=== PATIENT | male | born 1995 | race Caucasian/White ===

== ENCOUNTER 2017-04-20 00:58 | Emergency (ER) | payer MEDICAID ==
[~2017-04-20] VITALS: Ht 177.8 cm; Wt 66.0 kg
[2017-04-20] MEDS ORDERED: ACETAMINOPHEN 500 MG TABLET ONE (01:26)
[2017-04-20] MEDS ORDERED: ACETAMINOPHEN 500 MG TABLET PO ONE (01:30)
[2017-04-20 03:17] VITALS: BP 118/55
== END 2017-04-20 03:18 | disposition home or self-care (01) ==
LOC: ED 03:12
DX: S60.511A Abrasion of right hand, initial encounter (principal); S09.90XA Unspecified injury of head, initial encounter; M54.2 Cervicalgia; Y04.0XXA Assault by unarmed brawl or fight, initial encounter; Y93.89 Activity, other specified; Y92.488 Other paved roadways as the place of occurrence of the external cause; Y99.8 Other external cause status
CPT/HCPCS: 70450; 72125; 99284

== ENCOUNTER 2017-06-14 01:57 | Emergency (ER) | payer MEDICAID | END 2017-06-14 02:19 | disposition left against medical advice (07) | LOC: ED 02:12 | DX: F10.129 Alcohol abuse with intoxication, unspecified (principal); R45.851 Suicidal ideations; Z53.21 Procedure and treatment not carried out due to patient leaving prior to being seen by health care provider ==

== ENCOUNTER 2018-08-11 16:08 | Emergency (ER) | payer BC, MEDICAID ==
[~2018-08-11] VITALS: Ht 175.3 cm; Wt 64.6 kg
[2018-08-11 16:10] VITALS: BP 162/100
[2018-08-11 16:29] LABS: BASOPHILS # (AUTO) 0.03 x10^3/uL (0-0.1); BASOPHILS % (AUTO) 1 % (0-1); EOSINOPHILS # (AUTO) 0.16 x10^3/uL (0-0.4); EOSINOPHILS % (AUTO) 2 % (1-7); LYMPHOCYTES # (AUTO) 3.17 x10^3/uL (1-3.4); LYMPHOCYTES % (AUTO) 49 % (22-44); MD NO; MEAN CORPUSCULAR HEMOGLOBIN 31.1 pg (27.5-34.5); MEAN CORPUSCULAR HGB CONC 33.1 g/dL (33.2-36.2); MEAN CORPUSCULAR VOLUME 94.1 fL (81-97); MEAN PLATELET VOLUME 7.8 fL (7.4-10.4); MONOCYTES # (AUTO) 0.47 x10^3/uL (0.2-0.8); MONOCYTES % (AUTO) 7 % (2-9); NEUTROPHILS # (AUTO) 2.68 x10^3/uL (1.8-6.8); NEUTROPHILS % (AUTO) 41 % (42-75); PLATELET COUNT 376 x10^3/uL (130-400); RED BLOOD COUNT 5.64 x10^6/uL (4.38-5.82); RED CELL DISTRIBUTION WIDTH 13.8 % (9.4-14.8)
[2018-08-11 16:40] LABS: ALANINE AMINOTRANSFERASE 47 U/L (12-78); ALBUMIN 4.3 g/dL (3.4-5.0); ANION GAP 12 mmol/L (5-15); CALCIUM 8.9 mg/dL (8.5-10.1); CHLORIDE 106 mmol/L (98-107)
[2018-08-11 16:42] LABS: ALKALINE PHOSPHATASE 86 U/L (45-117); BILIRUBIN,TOTAL 0.4 mg/dL (0.2-1.0); TOTAL PROTEIN 8.2 g/dL (6.4-8.2)
== END 2018-08-11 17:51 | disposition home or self-care (01) ==
LOC: ED 17:40
DX: F10.120 Alcohol abuse with intoxication, uncomplicated (principal)
CPT/HCPCS: 36415; 80053; 83690; 85025; 99283

== ENCOUNTER 2018-10-18 04:51 | Emergency (ER) | payer BC ==
[~2018-10-18] VITALS: Ht 175.3 cm; Wt 64.4 kg
--- NOTE | 2018-10-18 05:17 | NUR ---
PT PRESENTED WITH C/O VOMITING NONSTOP FOR 3 DAYS,ALSO GEENERALIZE BODY ACHES, DENIES DIARRHEA. MONITORS APPLIED, SIDERAILS UP X2, CALL LIGHT WITHIN REACH. PA AT BEDSIDE FOR EVAL
[2018-10-18] MEDS ORDERED: FAMOTIDINE 20 MG/2 ML ONE (05:30)
[2018-10-18] MEDS ORDERED: LORazepam 2 MG/ML, 1ML IVPush ONE ×2 (05:30→07:00)
[2018-10-18] MEDS ORDERED: FAMOTIDINE 20 MG/2 ML IVP ONE (05:30)
[2018-10-18] MEDS ORDERED: ONDANSETRON 2MG/ML, 2ML IVPush ONE (05:30)
[2018-10-18] MEDS ORDERED: SODIUM CHLORIDE 0.9% 1,000ML IVBOLUS ONE (05:30)
[2018-10-18] MEDS ORDERED: SODIUM CHLORIDE FLUSH 10ML SYR IVF ONE (05:30)
[2018-10-18] MEDS ORDERED: LORazepam 2 MG/ML, 1ML ONE ×2 (05:30→06:27)
[2018-10-18] MEDS ORDERED: ONDANSETRON 2MG/ML, 2ML ONE (05:31)
--- NOTE | 2018-10-18 05:36 | NUR ---
PT MEDICATED PER MAR. PT TO ULTRASOUND.
[2018-10-18 05:53] LABS: BASOPHILS # (AUTO) 0.06 x10^3/uL (0-0.1); BASOPHILS % (AUTO) 1 % (0-1); EOSINOPHILS % (AUTO) 0 % (1-7); LYMPHOCYTES # (AUTO) 0.88 x10^3/uL (1-3.4); LYMPHOCYTES % (AUTO) 7 % (22-44); MD NO; MEAN CORPUSCULAR HEMOGLOBIN 33.1 pg (27.5-34.5); MEAN CORPUSCULAR HGB CONC 35.3 g/dL (33.2-36.2); MEAN CORPUSCULAR VOLUME 93.8 fL (81-97); MEAN PLATELET VOLUME 7.9 fL (7.4-10.4); MONOCYTES # (AUTO) 0.52 x10^3/uL (0.2-0.8); MONOCYTES % (AUTO) 4 % (2-9); NEUTROPHILS # (AUTO) 11.12 x10^3/uL (1.8-6.8); NEUTROPHILS % (AUTO) 88 % (42-75); PLATELET COUNT 321 x10^3/uL (130-400); RED BLOOD COUNT 4.89 x10^6/uL (4.38-5.82); RED CELL DISTRIBUTION WIDTH 12.6 % (9.4-14.8)
[2018-10-18 06:08] LABS: ANION GAP 21 mmol/L (5-15); CHLORIDE 95 mmol/L (98-107)
[2018-10-18 06:09] VITALS: BP 129/59
--- NOTE | 2018-10-18 06:09 | NUR ---
PT TO CT
[2018-10-18 06:12] LABS: ALANINE AMINOTRANSFERASE 40 U/L (12-78); ALKALINE PHOSPHATASE 89 U/L (45-117); BILIRUBIN,TOTAL 0.9 mg/dL (0.2-1.0); CREATININE 0.97 mg/dL (0.7-1.3); TOTAL PROTEIN 8.5 g/dL (6.4-8.2)
[2018-10-18] MEDS ORDERED: METOCLOPRAMIDE 5 MG/ML, 2ML ONE (06:12)
[2018-10-18] MEDS ORDERED: METOCLOPRAMIDE 5 MG/ML, 2ML IVPush ONE (06:30)
== END 2018-10-18 07:29 | disposition home or self-care (01) ==
LOC: ED 05:47
DX: S00.12XA Contusion of left eyelid and periocular area, initial encounter (principal); K29.20 Alcoholic gastritis without bleeding; X58.XXXA Exposure to other specified factors, initial encounter; Y93.89 Activity, other specified; Y92.89 Other specified places as the place of occurrence of the external cause; Y99.8 Other external cause status
CPT/HCPCS: 36415; 70486; 76700; 80053; 80307; 83690; 85025; 96361; 96374; 96375; 96376; 99284; J2060; J2405; J2765; J3490; J7030

== ENCOUNTER 2018-10-26 06:58 | Emergency (ER) | payer BC ==
[~2018-10-26] VITALS: Ht 175.3 cm; Wt 62.9 kg
[2018-10-26] MEDS ORDERED: SODIUM CHLORIDE FLUSH 10ML SYR IVF ONE (07:30)
[2018-10-26] MEDS ORDERED: ONDANSETRON 2MG/ML, 2ML IVPush ONE (07:30)
[2018-10-26] MEDS ORDERED: SODIUM CHLORIDE 0.9% 1,000ML IVBOLUS ONE (07:30)
[2018-10-26] MEDS ORDERED: FAMOTIDINE 20 MG/2 ML IVP ONE (07:30)
[2018-10-26] MEDS ORDERED: FAMOTIDINE 20 MG/2 ML ONE (07:39)
[2018-10-26] MEDS ORDERED: ONDANSETRON 2MG/ML, 2ML ONE (07:39)
[2018-10-26 07:43] LABS: BASOPHILS # (AUTO) 0.04 x10^3/uL (0-0.1); BASOPHILS % (AUTO) 1 % (0-1); EOSINOPHILS # (AUTO) 0.01 x10^3/uL (0-0.4); EOSINOPHILS % (AUTO) 0 % (1-7); LYMPHOCYTES # (AUTO) 1.57 x10^3/uL (1-3.4); LYMPHOCYTES % (AUTO) 28 % (22-44); MD NO; MEAN CORPUSCULAR HEMOGLOBIN 32.1 pg (27.5-34.5); MEAN CORPUSCULAR HGB CONC 33.5 g/dL (33.2-36.2); MEAN CORPUSCULAR VOLUME 95.7 fL (81-97); MEAN PLATELET VOLUME 7.8 fL (7.4-10.4); MONOCYTES # (AUTO) 0.42 x10^3/uL (0.2-0.8); MONOCYTES % (AUTO) 8 % (2-9); NEUTROPHILS # (AUTO) 3.52 x10^3/uL (1.8-6.8); NEUTROPHILS % (AUTO) 63 % (42-75); PLATELET COUNT 408 x10^3/uL (130-400); RED BLOOD COUNT 5.17 x10^6/uL (4.38-5.82)
--- NOTE | 2018-10-26 07:53 | NUR ---
pt ambulatory to room 4 w/ c/o n/v x 3 days. pt also c/o mid epigastric abd pain started 3 days ago. pt states he has been drinking etoh abuse last use at 0200 this am. pt resting on gurney. medicated per nov. monitors applied. nilda.
[2018-10-26 07:54] LABS: ALBUMIN 4.6 g/dL (3.4-5.0); ANION GAP 15 mmol/L (5-15); CALCIUM 9.8 mg/dL (8.5-10.1); CHLORIDE 104 mmol/L (98-107)
[2018-10-26 07:58] LABS: ALANINE AMINOTRANSFERASE 48 U/L (12-78); ALKALINE PHOSPHATASE 91 U/L (45-117); BILIRUBIN,TOTAL 0.9 mg/dL (0.2-1.0); CREATININE 0.93 mg/dL (0.7-1.3); TOTAL PROTEIN 8.4 g/dL (6.4-8.2)
--- NOTE | 2018-10-26 07:58 | NUR ---
URINE SENT TO LAB. SHA [facility]O NOTIFIED THAT PATIENT IS REQUESTING A MEDICATION FOR HIS TREMORS, AND THAT PATIENT STATES HE DRINKS MORE THAN ONE PINT OF HARD LIQUER PER DAY AND DRINKS UNTIL HE "BLACKS OUT" AND THAT HIS LAST DRINK WAS AT 2AM THIS AM. SHA YO TO ORDER ATIVAN.
[2018-10-26] MEDS ORDERED: LORazepam 2 MG/ML, 1ML IVPush ONE (08:00)
[2018-10-26] MEDS ORDERED: LORazepam 2 MG/ML, 1ML ONE (08:01)
--- NOTE | 2018-10-26 08:08 | NUR ---
PATIENT MEDICATED WITH 1MG ATIVAN IVP.
[2018-10-26 08:24] LABS: CULTURE INDICATED? YES; MICROSCOPIC INDICATED
[2018-10-26 08:26] VITALS: BP 135/87
== END 2018-10-26 09:01 | disposition home or self-care (01) ==
LOC: ED 08:53
DX: K29.20 Alcoholic gastritis without bleeding (principal); F41.9 Anxiety disorder, unspecified; F10.10 Alcohol abuse, uncomplicated
CPT/HCPCS: 36415; 80053; 81001; 83690; 85025; 87086; 93005; 96361; 96374; 96375; 99284; J2060; J2405; J3490; J7030

== ENCOUNTER 2018-11-21 17:26 | Emergency (ER) | payer BC ==
[~2018-11-21] VITALS: Ht 175.3 cm; Wt 63.6 kg
[2018-11-21 17:32] VITALS: BP 144/101
--- NOTE | 2018-11-21 17:56 | NUR ---
Pt c/o nausea/vomiting x3 days, reports ETOH abuse, last drink was yesterday per pt. Denies any other hx
[2018-11-21] MEDS ORDERED: PROMETHAZINE 25 MG/ML, 1ML ONE (17:57)
[2018-11-21] MEDS ORDERED: PROMETHAZINE 25 MG/ML, 1ML IM ONE (18:00)
[2018-11-21 18:07] LABS: BASOPHILS # (AUTO) 0.04 x10^3/uL (0-0.1); BASOPHILS % (AUTO) 1 % (0-1); EOSINOPHILS # (AUTO) 0.11 x10^3/uL (0-0.4); EOSINOPHILS % (AUTO) 3 % (1-7); LYMPHOCYTES # (AUTO) 2.16 x10^3/uL (1-3.4); LYMPHOCYTES % (AUTO) 48 % (22-44); MD NO; MEAN CORPUSCULAR HEMOGLOBIN 32.6 pg (27.5-34.5); MEAN CORPUSCULAR HGB CONC 34.7 g/dL (33.2-36.2); MEAN CORPUSCULAR VOLUME 94.1 fL (81-97); MEAN PLATELET VOLUME 7.9 fL (7.4-10.4); MONOCYTES # (AUTO) 0.37 x10^3/uL (0.2-0.8); MONOCYTES % (AUTO) 8 % (2-9); NEUTROPHILS # (AUTO) 1.78 x10^3/uL (1.8-6.8); NEUTROPHILS % (AUTO) 40 % (42-75); PLATELET COUNT 347 x10^3/uL (130-400); RED BLOOD COUNT 4.91 x10^6/uL (4.38-5.82); RED CELL DISTRIBUTION WIDTH 12.5 % (9.4-14.8)
[2018-11-21 18:13] LABS: ALANINE AMINOTRANSFERASE 35 U/L (12-78); ALBUMIN 4.5 g/dL (3.4-5.0); ANION GAP 6 mmol/L (5-15); CALCIUM 8.4 mg/dL (8.5-10.1); CHLORIDE 111 mmol/L (98-107)
[2018-11-21 18:16] LABS: ALKALINE PHOSPHATASE 80 U/L (45-117); BILIRUBIN,TOTAL 0.6 mg/dL (0.2-1.0); CREATININE 1.02 mg/dL (0.7-1.3); TOTAL PROTEIN 7.8 g/dL (6.4-8.2)
[2018-11-21 18:20] LABS: MICROSCOPIC NOT IND
[2018-11-21 18:27] LABS: CULTURE INDICATED? NO
--- NOTE | 2018-11-21 18:28 | NUR ---
PT GIVEN WATER FOR PO CHALLENGE.
[2018-11-21] MEDS ORDERED: MAALOX/HYOSCYAMINE/LIDOCAINE 45 ML BTL ONE (18:43)
--- NOTE | 2018-11-21 18:52 | NUR ---
PT MEDICATED PER ORDER.
--- NOTE | 2018-11-21 18:58 | NUR ---
Patient given discharge instructions and they have confirmed that they understand the instructions. Patient ambulatory with steady gait.
[2018-11-21] MEDS ORDERED: MAALOX/HYOSCYAMINE/LIDOCAINE 45 ML BTL PO ONE (19:00)
== END 2018-11-21 19:00 | disposition home or self-care (01) ==
LOC: ED 17:45
DX: K29.20 Alcoholic gastritis without bleeding (principal); R11.2 Nausea with vomiting, unspecified
CPT/HCPCS: 36415; 80053; 81003; 83690; 85025; 96372; 99283; J2550

== ENCOUNTER 2018-11-27 05:59 | Emergency (ER) | payer BC ==
[~2018-11-27] VITALS: Ht 175.3 cm; Wt 63.9 kg
[2018-11-27] MEDS ORDERED: ONDANSETRON ODT 4 MG PO ONE (06:00)
--- NOTE | 2018-11-27 07:09 | NUR ---
PT C/O N/V X 3 DAYS. PT ALSO DRINKING BIG GULP IN TRIAGE. per triage note
[2018-11-27] MEDS ORDERED: ONDANSETRON ODT 4 MG ONE ×2 (07:13→07:20)
[2018-11-27 08:06] LABS: ALANINE AMINOTRANSFERASE 38 U/L (12-78); ALBUMIN 4.6 g/dL (3.4-5.0); ANION GAP 16 mmol/L (5-15); CHLORIDE 103 mmol/L (98-107); CREATININE 0.81 mg/dL (0.7-1.3)
[2018-11-27 08:08] LABS: ALKALINE PHOSPHATASE 89 U/L (45-117); BILIRUBIN,TOTAL 0.7 mg/dL (0.2-1.0); TOTAL PROTEIN 8.5 g/dL (6.4-8.2)
[2018-11-27 08:13] LABS: PLATELET COUNT 405 x10^3/uL (130-400); RED BLOOD COUNT 5.19 x10^6/uL (4.38-5.82); RED CELL DISTRIBUTION WIDTH 12.4 % (9.4-14.8)
[2018-11-27 08:33] LABS: MD YES
[2018-11-27 08:35] LABS: BAND#(MANUAL) 0.22 x10^3/uL; BANDS%(MANUAL) 2 % (0-7); LYMPH#(MANUAL) 1.34 x10^3/uL (1-3.4); LYMPHS% (MANUAL) 12 % (22-44); MONOS#(MANUAL) 0.22 x10^3/uL (0.3-2.7); MONOS% (MANUAL) 2 % (2-9); SEG#(MANUAL) 9.41 x10^3/uL (1.8-6.8); SEGS% (MANUAL) 84 % (42-75)
[2018-11-27 08:36] LABS: <PLATELET ESTIMATE> ADEQUATE; <PLT MORPHOLOGY> NORMAL PLT MORPH; <RBC MORPHOLOGY> NORMAL
--- NOTE | 2018-11-27 09:11 | NUR ---
given dc instruction pt understood pt up ambulated to check out
--- NOTE | 2018-11-27 09:11 | NUR ---
no nausea no vomitting at time of dc home
[2018-11-27 09:12] VITALS: BP 134/87
== END 2018-11-27 09:14 | disposition home or self-care (01) ==
LOC: ED 08:45
DX: K29.20 Alcoholic gastritis without bleeding (principal); F10.10 Alcohol abuse, uncomplicated; Y90.9 Presence of alcohol in blood, level not specified
CPT/HCPCS: 36415; 80053; 83690; 85025; 99283; Q0162

== ENCOUNTER 2020-04-30 19:46 | Emergency (ER) | payer BC ==
[~2020-04-30] VITALS: Ht 175.3 cm; Wt 68.8 kg
[2020-04-30 19:49] VITALS: BP 142/77
--- NOTE | 2020-04-30 20:35 | NUR ---
PT LEFT ROOM WITH OUT BEING SEEN
== END 2020-04-30 20:39 | disposition left against medical advice (07) ==
LOC: ED 20:10
DX: R11.2 Nausea with vomiting, unspecified (principal); R10.84 Generalized abdominal pain; Z53.21 Procedure and treatment not carried out due to patient leaving prior to being seen by health care provider